=== PATIENT | female | born 1975 | race Caucasian/White ===

== ENCOUNTER → 2020-02-29 13:52 | Outpatient (BNVA) | payer SELFPAY | PROVIDERS: PCP Internal Medicine; Referring Provider Internal Medicine; Visit Provider Physician Assistant | DX: E66.9 Obesity, unspecified (principal); Z68.35 Body mass index [BMI] 35.0-35.9, adult | CPT/HCPCS: 99214 ==

== ENCOUNTER → 2020-04-05 08:16 | Outpatient (BNVA) | payer SELFPAY | PROVIDERS: Visit Provider Dietitian, Registered | DX: Z76.89 Persons encountering health services in other specified circumstances (principal) ==

== ENCOUNTER → 2020-05-07 08:23 | Outpatient (BNVA) | payer BC, SELFPAY | PROVIDERS: Visit Provider Physician Assistant | DX: Z76.89 Persons encountering health services in other specified circumstances (principal) ==

== ENCOUNTER 2021-08-04 23:11 | Emergency (ER) | payer BC, SELFPAY | END 2021-08-04 23:20 | disposition left against medical advice (07) | LOC: HO.ED 23:20 | PROVIDERS: Emergency Provider Emergency Medicine; PCP Internal Medicine | DX: H57.11 Ocular pain, right eye (principal) ==

== ENCOUNTER 2024-08-07 07:57 | Emergency (ER) | payer BC, SELFPAY ==
--- NOTE | ~2024-08-07 | CT_ITS ---
EXAMINATION: CT ABDOMEN PELVIS WITH IV CONTRAST HISTORY: left sided abd pain COMPARISON: There are no prior studies for comparison. TECHNIQUE: CT scan of the abdomen and pelvis was performed following administration of 85 mL Omnipaque 350 using standard departmental protocol. Coronal and sagittal reformatted images were generated and reviewed. Oral contrast material was not administered at the request of the referring physician. This CT exam was performed with one or more of the following dose reduction techniques: automated exposure control, adjustment of the mA and/or kV according to patient size, use of iterative reconstruction technique. DLP: 643 mGy-cm FINDINGS: LOWER CHEST: The visualized lung bases are clear. There is no pleural effusion. CARDIOVASCULATURE: The heart is normal in size. There is no pericardial effusion. LIVER: The liver is normal in size and contour. No liver mass is identified. The hepatic and portal veins are patent. GALLBLADDER / BILE DUCTS: The gallbladder is unremarkable. There is no intra or extrahepatic biliary ductal dilatation. SPLEEN: The spleen is normal in size. No focal splenic lesion is identified. PANCREAS: The pancreas is unremarkable in appearance. ADRENAL GLANDS: Within normal limits. KIDNEYS/RETROPERITONEUM: No renal calculi are identified. There is no hydronephrosis. No renal masses are identified. LYMPH NODES: No abdominal or pelvic lymphadenopathy. VASCULATURE: The abdominal aorta is normal in caliber. MESENTERY/PERITONEUM: No free fluid. No masses. There is no free intraperitoneal gas. STOMACH: There is a small hiatal hernia. The remainder of the stomach is collapsed. SMALL BOWEL: The small bowel is normal in caliber. COLON: There is diverticulosis of the sigmoid colon, without evidence of diverticulitis. APPENDIX: Normal. URINARY BLADDER/PELVIC ORGANS: The urinary bladder is collapsed, limiting evaluation. The uterus is unremarkable. BONES / SOFT TISSUES: No suspicious bony or soft tissue abnormalities. CT/CT abdomen pelvis w IV con IMPRESSION: Sigmoid diverticulosis without evidence of diverticulitis. Small hiatal hernia. Otherwise unremarkable contrast-enhanced CT of the abdomen and pelvis. Electronically signed by: Ben Peck MD 08/07/2024 09:53 AM EDT
[2024-08-07 08:07] VITALS: BP 111/67; BP 97/48; PULSE 61; PULSE 66; RESP 14; TEMP 36.4; O2SAT 100; O2SAT 96; BMI 31.5
--- NOTE | 2024-08-07 08:08 | ED.ABDPAIN ---
HPI - Abdominal Pain General Chief Complaint: Abdominal Pain Stated Complaint: ABD PAIN,VOMITING,DIARRHEA PER EMS Time Seen by Provider: 08/07/24 08:03 History of Present Illness HPI narrative: Patient is a 49-year-old female presents today with having nausea vomiting abdominal pain on the left side. It has been ongoing for about 24 hours. History of diverticulitis in the past. There is no fever no chills. No chest pain or diaphoresis. Patient did have some nausea vomiting. Vomiting with some retching. Mostly mucus a very small streaks of blood. Denies any blood in the stool. Not on any blood thinners. No history of diabetes no history of abdominal surgery no fever no chills no travel history Related Data Home Medications ?Medication ?Instructions ?Recorded ?Confirmed citalopram 10 mg tablet (Celexa) 10 mg PO DAILY 02/29/20 05/07/20 lactobacillus combination no.8 3 3,000 mmu cells PO DAILY 02/29/20 05/07/20 billion cell capsule (Adult Probiotic) multivitamin 1 cap PO DAILY 02/29/20 05/07/20 psyllium husk 0.4 gram capsule 0.4 g PO DAILY 02/29/20 05/07/20 (Daily Fiber) Previous Rx's ?Medication ?Instructions ?Recorded cephalexin 500 mg capsule 500 mg PO Q8H 7 days #21 caps 08/07/24 Allergies Allergy/AdvReac Type Severity Reaction Status Date / Time No Known Allergies Allergy Verified 08/07/24 08:09 Review of Systems Review of Systems Positive abdominal pain Positive nausea Yes all other systems are reviewed and are negative PMFSH Past Medical History Attestation statement: The following information was validated with the patient. Medical History DCIS (ductal carcinoma in situ) IBS (irritable bowel syndrome) Obesity (BMI 30-39.9) Surgical History S/P lumpectomy, right breast Family History Family History Father Afib Pre-diabetes Glaucoma (increased eye pressure) Mother No problems noted. Brother No problems noted. Son No problems noted. Son No problems noted. Son No problems noted. Social History Social History Advance Directives: No Advance Directives Information Provided: Yes Physical Exam ED Vital Signs: Vital Signs - 24 hr 08/07/24 08:07 Temperature 97.5 F Pulse Rate 61 Respiratory Rate 14 Blood Pressure 97/48 L Pulse Oximetry 96 Oxygen Delivery Method Room Air BMI result Body Mass Index 31.5 Appearance: Alert. Oriented X3. No acute distress. Eyes: Pupils equal, round and reactive to light. ENT: Pharynx normal. Neck: Normal inspection. Neck supple. No lymph nodes noted. No crepitus CVS: Normal heart rate and rhythm. Pulses normal. Normal S1 and S2 Respiratory: No respiratory distress. Breath sounds normal. No Wheezing. No rales Abdomen: Soft and nontender. No rigidity. No distention. good BS x4 Skin: Skin warm and dry. Normal skin color. Normal skin turgor. Extremities: No lower extremity edema. Neurovascular intact to all extremities. No Lacerations. No Rash Neuro: Oriented X 3. No motor deficit. No sensory deficit. Moving all extermities. No slurred speech Medical Decision Making Medical Decision Making MDM Narrative: Positive left-sided abdominal pain question diverticulitis labs pain meds fluids ordered. Will monitor carefully. CT scan show evidence of diverticulosis but no evidence for diverticulitis. Patient's urine showed a question UTI will give antibiotics. There is no signs of obstruction on the CT patient otherwise well appearing in no distress will give antibiotics for the UTI. No flank pain to suggest patient has pyelonephritis she tolerate any fluids will discharge home Differential Diagnosis Differential Diagnoses: The differential diagnosis associated with the presentation includes Admission/Observation Consideration of admission/observation: Escalation of care including admission/observation considered Lab Data [facility] Lab Attestation statement: I reviewed the patient's lab results. 08/07/24 08:14 08/07/24 08:14 Labs: Lab Results 08/07/24 08/07/24 Range/Units 08:14 10:38 WBC 9.4 (4.8-10.8) X10*3/uL RBC 4.96 (4.20-5.50) X10*6/uL Hgb 15.1 (12.0-16.0) g/dl Hct 42.8 (37.0-47.0) % MCV 86.3 (80.0-98.0) fL MCH 30.4 (27.0-33.0) pg MCHC 35.3 H (31.0-35.0) g/dl RDW 12.6 (11.0-16.0) % Plt Count 195 (160-400) X10*3/uL MPV 9.4 (9.4-12.3) fL Immature Gran % (Auto) 0.6 H (0.0-0.4) % Neut % (Auto) 76.0 H (45-73) % Lymph % (Auto) 13.9 L (20-40) % [place] % (Auto) 6.3 (2-11) % Eos % (Auto) 3.0 (0-4) % Baso % (Auto) 0.2 (0-2) % Lymph # (Auto) 1.3 (1.2-4.9) X10*3/uL [place] # (Auto) 0.6 (0.1-1.2) X10*3/uL Eos # (Auto) 0.3 (0.0-0.4) X10*3/uL Baso # (Auto) 0.0 (0.0-0.2) X10*3/uL Abs Immat Gran (auto) 0.06 H (0.00-0.03) X10*3/uL Absolute Neuts (auto) 7.2 (2.0-8.3) x10*3/uL Absolute Nucleated RBC 0.000 (0.0-0.012) X10*3/uL Nucleated RBC % (auto) 0.0 (0.0-0.2) /100WBC Sodium 140 (135-145) mmol/L Potassium 3.8 (3.3-5.1) mmol/L Chloride 109 H (96-108) mmol/L Carbon Dioxide 25 (22-29) mmol/L Anion Gap 10 L (12-20) BUN 19 H (9-16) mg/dL Creatinine 0.75 (0.5-1.4) mg/dL Estim Creat Clear Calc 86.8 Estimated GFR > 60 Random Glucose 101 (60-115) mg/dL Calcium 8.6 (8.4-10.2) mg/dL Total Bilirubin 0.7 (0.0-1.0) mg/dL Direct Bilirubin 0.2 (0.0-0.5) mg/dL AST 18 (5-31) U/L ALT 15 (0-31) U/L Alkaline Phosphatase 38 L (39-117) U/L Total Protein 6.4 L (6.5-8.0) g/dL Albumin 4.0 (3.5-5.0) g/dL Lipase 28 (8-78) U/L Beta HCG, Quant < 2 mIU/mL Urine Color Yellow Urine Appearance Clear Urine pH 5.5 (5.0-9.0) Ur Specific [place] >= 1.030 H (1.005-1.025) Urine Protein Negative (Neg-Trace) mg/dL Urine Glucose (UA) Negative (Negative) mg/dL Urine Ketones Trace (Negative) mg/dL Urine Blood Negative (Negative) Urine Nitrite Negative (Negative) Ur Leukocyte Esterase Moderate (2+) H (Negative) Urine RBC 0-2 (0-2) /HPF Urine WBC 6-10 H (0-5) /HPF Ur Squamous Epith Cells 0-2 (0-2) /HPF Urine Bacteria Trace (None Seen) Hyaline Casts 0-2 (0-2) /LPF Independent Interpretation I performed an independent interpretation of an: CT Scan (CT scan of the abdomen pelvis negative for obstruction abscess perforation) Radiology Impression Discussion of test interpretation with radiology: I have reviewed the radiologist's reading. External Record Review External record reviewed: Inpatient record Chronic Conditions History of diverticulitis Social Determinants Patient?s care significantly limited by Social Determinants of Health including: Problems related to primary support group Medications Administered Discontinued Medications Generic Name Dose Route Start Last Admin Trade Name Freq PRN Reason Stop Dose Admin Diphenhydramine HCl 25 mg 08/07/24 08:31 08/07/24 08:42 Diphenhydramine Hcl 50 Mg/Ml Vial IVPUSH 08/07/24 08:32 25 mg ONCE ONE Administration Hydromorphone HCl 0.5 mg 08/07/24 08:09 08/07/24 08:28 Hydromorphone Hcl 0.5 Mg/0.5 Ml Syringe IVPUSH 08/07/24 08:10 0.5 mg ONCE ONE Administration Protocol Sodium Chloride 1,000 mls @ 999 mls/hr 08/07/24 08:15 08/07/24 08:22 Ns IV 08/07/24 09:15 999 mls/hr .Q1H1M CORRINA Administration Sodium Chloride 1,000 mls @ 999 mls/hr 08/07/24 08:15 08/07/24 08:23 Ns IV 08/07/24 09:15 999 mls/hr .Q1H1M CORRINA Administration Iohexol 100 ml 08/07/24 09:25 08/07/24 09:28 Iohexol 350 Mg/Ml 100 Ml Infus..Btl IV 08/07/24 09:26 85 ml ONCE ONE Administration Metoclopramide HCl 10 mg 08/07/24 08:31 08/07/24 08:42 Metoclopramide Hcl 10 Mg/2 Ml Vial IVPUSH 08/07/24 08:32 10 mg ONCE ONE Administration Discharge Plan Discharge Clinical Impression: Urinary tract infection Patient Disposition: Home, Self-Care Instructions: Urinary Tract Infection in Women (DC) Prescriptions: New cephalexin 500 mg capsule 500 mg PO Q8H 7 Days Qty: 21 0RF No Action citalopram [Celexa] 10 mg tablet 10 mg PO DAILY multivitamin Capsule 1 cap PO DAILY psyllium husk [Daily Fiber] 0.4 gram capsule 0.4 g PO DAILY Adult Probiotic 3 billion cell capsule 3,000 mmu cells PO DAILY Rx Instructions: administer with a meal Referrals: Jenaro Stewart MD [Primary Care Provider] - 08/09/24 Print Language: Trin[place]adian
[2024-08-07] MEDS: 0.9 % Sodium Chloride 1,000 ML 999 ML IV ×2 (08:22→08:23)
[2024-08-07] MEDS: HYDROmorphone HCl 0.5 MG/0.5 ML SYRINGE IVPUSH (08:28)
[2024-08-07] MEDS: Metoclopramide HCl 10 MG/2 ML VIAL IVPUSH (08:42)
[2024-08-07] MEDS: diphenhydrAMINE HCL 50 MG/ML VIAL 25 MG IVPUSH (08:42)
[2024-08-07 08:44] LABS: MANUAL DIFF FLAG NO
[2024-08-07 08:45] LABS: Basophils Percent Auto 0.2 % (0-2); Eosinophils Absolute Auto 0.3 X10*3/uL (0.0-0.4); Hematocrit 42.8 % (37.0-47.0); Hemoglobin 15.1 g/dl (12.0-16.0); Imm Gran Abs Auto 0.06 X10*3/uL (0.00-0.03); Imm Gran Pct Auto 0.6 % (0.0-0.4); Lymphocytes Absolute Auto 1.3 X10*3/uL (1.2-4.9); Lymphocytes Percent Auto 13.9 % (20-40); Mean Corpuscular HGB Conc 35.3 g/dl (31.0-35.0); Mean Corpuscular Hemoglobin 30.4 pg (27.0-33.0); Mean Corpuscular Volume 86.3 fL (80.0-98.0); Mean Platelet Volume 9.4 fL (9.4-12.3); Monocytes Absolute Auto 0.6 X10*3/uL (0.1-1.2); Monocytes Percent Auto 6.3 % (2-11); Neutrophils Absolute Auto 7.2 x10*3/uL (2.0-8.3); Platelet Count 195 X10*3/uL (160-400); Red Blood Count 4.96 X10*6/uL (4.20-5.50); Red Cell Distribution Width 12.6 % (11.0-16.0); White Blood Count 9.4 X10*3/uL (4.8-10.8)
[2024-08-07 09:01] LABS: Alanine Aminotransferase 15 U/L (0-31); Alkaline Phosphatase 38 U/L (39-117); Anion Gap 10 (12-20); Aspartate Amino Transferase 18 U/L (5-31); Bilirubin Direct 0.2 mg/dL (0.0-0.5); Bilirubin Total 0.7 mg/dL (0.0-1.0); Blood Urea Nitrogen 19 mg/dL (9-16); Calcium 8.6 mg/dL (8.4-10.2); Carbon Dioxide 25 mmol/L (22-29); Chloride 109 mmol/L (96-108); Creatinine Clr Calc Pharmacy 86.8; Estimated Glomerular Filt Rate > 60; Glucose Random 101 mg/dL (60-115); Lipase 28 U/L (8-78); Potassium 3.8 mmol/L (3.3-5.1); Sodium 140 mmol/L (135-145); Total Protein 6.4 g/dL (6.5-8.0)
[2024-08-07 09:11] LABS: HCG Quantitative < 2 mIU/mL
[2024-08-07] MEDS: iohexoL 350 MG/ML 100 ML INFUS..BTL IV (09:28)
[2024-08-07 10:47] LABS: Appearance Urine Clear; Color Urine Yellow; Glucose Urine UA Negative (Negative); Leukocyte Esterase Urine Moderate (2+) (Negative); Nitrite Urine Negative (Negative); PH 5.5 (5.0-9.0); Specific Gravity - Urine >= 1.030 (1.005-1.025); UMIC TRIGGER UACC YES; Urine Blood Negative (Negative); Urine Ketones Trace mg/dL (Negative); Urine Protein Negative (Neg-Trace)
[2024-08-07 10:52] LABS: Bacteria Urine Trace (None Seen); Hyaline Casts Urine 0-2 /LPF (0-2); RBC Urine 0-2 /HPF (0-2); Squamous Epithelial Cell Urine 0-2 /HPF (0-2); UACC Culture Trigger YES
[2024-08-07 12:42] VITALS: BP 95/56; PULSE 75; RESP 16; TEMP 36.6; O2SAT 96
== END 2024-08-07 12:43 | disposition home or self-care (01) ==
PROVIDERS: Emergency Provider Emergency Medicine Emergency Medical Services; PCP Internal Medicine
DX: N39.0 Urinary tract infection, site not specified (principal); R10.2 Pelvic and perineal pain; R11.2 Nausea with vomiting, unspecified; Z79.899 Other long term (current) drug therapy
CPT/HCPCS: 36415; 74177; 80048; 80076; 81001; 83690; 84702; 85025; 87086; 87147; 96361; 96374; 96375; 99283; 99285; J1171; J1200; J2765; Q9967

== ENCOUNTER → 2024-08-07 08:09 | Outpatient (BNV) | payer BC, SELFPAY | PROVIDERS: Emergency Provider Emergency Medicine Emergency Medical Services; PCP Internal Medicine; Visit Provider Radiology Diagnostic Radiology | DX: K57.30 Diverticulosis of large intestine without perforation or abscess without bleeding (principal); K44.9 Diaphragmatic hernia without obstruction or gangrene | CPT/HCPCS: 74177 ==